=== PATIENT | female | born 2000 | race Caucasian/White ===

== ENCOUNTER 2022-11-01 00:29 | Emergency (ER) | payer SELFPAY ==
[~2022-11-01] VITALS: Ht 157.5 cm; Wt 71.0 kg
[2022-11-01] MEDS ORDERED: KETOROLAC 60MG/2ML VIAL IM ONE (01:00)
[2022-11-01 05:00] VITALS: BP 118/76
== END 2022-11-01 05:25 | disposition home or self-care (01) ==
LOC: ER 00:46
DX: M54.50 Low back pain, unspecified (principal); F10.129 Alcohol abuse with intoxication, unspecified; Y90.0 Blood alcohol level of less than 20 mg/100 ml
CPT/HCPCS: 72131; 81025; 96372; 99285; J1885; Z7610